=== PATIENT | male | born 2005 | race Caucasian/White ===

== ENCOUNTER 2023-07-10 21:04 | Emergency (ER) | payer MEDICAID ==
[~2023-07-10] VITALS: Ht 175.3 cm; Wt 111.1 kg
[2023-07-10 21:41] VITALS: BP_SYST 145; PULSE 79; RESP 17; TEMP 98.5; O2SAT 98
[2023-07-11] MEDS ORDERED: SULF1TAB48 PO (00:54)
[2023-07-11] MEDS ORDERED: IBUP-1970 PO (00:54)
[2023-07-11] MEDS ORDERED: ACET-2634 PO (00:54)
[2023-07-11 01:03] VITALS: BP_SYST 143; PULSE 77; RESP 17; TEMP 98.6; O2SAT 98
== END 2023-07-11 01:03 | disposition home or self-care (01) ==
LOC: SED 21:04
DX: L05.01 Pilonidal cyst with abscess (principal); Z79.899 Other long term (current) drug therapy
CPT/HCPCS: 99284